=== PATIENT | female | born 1970 | race Caucasian/White ===

== ENCOUNTER 2020-12-03 10:18 | Emergency (ER) | payer OTHER, SELFPAY ==
[2020-12-03] VITALS (28 sets, daily range): BP systolic 112–157; BP diastolic 59–119; PULSE 78; RESP 18; TEMP 35.9; O2SAT 96–100
--- NOTE | ~2020-12-03 | CT_ITS ---
EXAMINATION: CT abdomen pelvis wo con DATE: 12/03/2020 11:42 INDICATION: Abdominal pain TECHNIQUE: Computed tomography (CT) of the abdomen and pelvis was performed without intravenous contr ast. Automated exposure control and iterative reconstruction technique were employed. The dose-length product was 497.32 mGy-cm. COMPARISON: None FINDINGS: Calcified right middle lobe nodule consistent with old granulomatous disease. Heart size is normal. N o pericardial or pleural effusion. Liver, gallbladder, pancreas and bilateral adrenal glands are norm al. There is some scarring at the spleen which likely sequela of prior infarct or trauma. There is a geographic region of decreased density at the superior spleen which could represent edema related to more recent infarct. Kidneys and ureters are normal with no urolithiasis, hydroureteronephrosis or pe rinephric/ureteral stranding. Bladder, anteverted uterus and bilateral adnexa are normal. There is mo derate colonic diverticulosis with a sigmoid predominance. There is no adjacent inflammatory change to suggest diverticulitis. Small bowel and appendix are normal. No free intraperitoneal gas or fluid. No pathologically enlarged abdominal or pelvic lymphadenopathy. Small fat-containing umbilical herni a. Mild lumbosacral spondylosis. IMPRESSION: 1. Geographic region of subtly decreased attenuation at the cephalad aspect of the spleen which raise s suspicion for splenic infarct with contour abnormality along the more inferior spleen suggesting sc arring related to chronic infarcts. Specificity is however limited in the absence of intravenous cont rast. Reviewed, dictated and finalized at location A. IMPRESSION: 1. Geographic region of subtly decreased attenuation at the cephalad aspect of the spleen which raises suspicion for splenic infarct with contour abnormality along the more inferior spleen suggesting scarring related to chronic infarcts. Specificity is however limited in the absence of intravenous contrast.
[2020-12-03 11:16] LABS: Basophils Absolute Auto 0.1 K/mm3 (0.0-0.1); Basophils Percent Auto 0.7 % (0.2-1.2); Eosinophils Absolute Auto 0.2 K/mm3 (0-0.3); Hematocrit 45.3 % (37.0-47.0); Immature Granulocyte Absolute 0.08 K/mm3 (0.00-0.031); Immature Granulocyte Percent A 0.5 % (0-0.5); Lymphocytes Absolute Auto 3.36 K/mm3 (0.9-3.2); Lymphocytes Percent Auto 20.3 % (18.3-44.2); Mean Corpuscular HGB Conc 35.3 g/dl (32-36); Mean Corpuscular Hemoglobin 30.4 pg (26-34); Mean Platelet Volume 9.3 fl (7.4-10.4); Monocytes Absolute Auto 0.7 K/mm3 (0.1-0.6); Monocytes Percent Auto 3.9 % (2.6-8.5); Neutrophils Absolute Auto 12.2 K/mm3 (1.3-6.7); Neutrophils Percent Auto 73.6 % (45.5-73.1); Platelet Count Result 496 k/mm3 (150-375); Red Blood Count 5.27 M/mm3 (4.2-5.4); Red Cell Distribution Width 12.5 % (11.5-14.5); White Blood Count 16.5 K/mm3 (4.5-10.0)
[2020-12-03 11:20] LABS: Add Urine Microscopic? YES; Appearance Urine Cloudy (Clear); Bilirubin Urine Negative (Negative); Blood Urine 1+ (Negative); Color Urine Yellow (Yellow); Glucose Urine UA Negative (Negative); Ketones Urine Trace mg/dL (Negative); Leukocyte Esterase Ur Negative LEU/UL (Negative); Nitrate Urine Negative (Negative); Protein Urine 1+ mg/dL (Negative); Specific Grav Ur 1.017 (1.001-1.035); Squamous Epithelial Cell Urine Few /hpf (Few); Urobilinogen Urine Negative mg/dL (<2.0); WBC Urine 0-3 /hpf
[2020-12-03 11:29] LABS: Alanine Aminotransferase 31 U/L (4-35); Albumin Level 4.5 g/dL (3.5-5.1); Alkaline Phosphatase 116 U/L (38-126); Anion Gap 8 mmol/L (8-16); Aspartate Amino Transferase 29 U/L (14-36); Bilirubin,Total 0.4 mg/dL (0.2-1.3); Blood Urea Nitrogen 9 mg/dL (7-17); Calcium 9.7 mg/dL (8.4-10.2); Carbon Dioxide 26 mmol/L (22-30); Chloride 108 mmol/L (98-107); Estimated CRCL calculation 83 ml/min; Estimated Glomerular Filt Rate > 60; Glucose 129 mg/dL (65-105); Lipase 58 U/L (23-300); Potassium 3.5 mmol/L (3.4-5.0); Sodium 142 mmol/L (137-145)
--- NOTE | 2020-12-03 11:32 | ED.ABDPAIN ---
HPI - Abdominal Pain General Chief Complaint: Abdominal Pain Stated Complaint: side pain, ABD pain, already been to ER Time Seen by Provider: 12/03/20 10:36 Source: patient Mode of arrival: ambulatory Limitations: no limitations History of Present Illness HPI narrative: Patient is 50 years old white female presents with left abdominal pain radiating to left flank area, sharp started 7 days ago. Patient was seen at [facility] [place] and was discharged at that time, 1 day later went to back for the same symptoms and was hospitalized on Monday, Monday and got discharge Monday. Patient underwent CAT scan of the abdomen and pelvis without contrast, gallbladder ultrasound, [facility] Dulcolax and [place]. Patient came today because the pain is still there, associated with nausea and frequent vomiting. Patient denies any fever, chills, chest pain, back pain. Patient denies exposure to anybody known to have COVID-19. Patient denies history of COVID-19 infection. Patient dropped off to the ED by her cousin. Patient smokes and uses marijuana. Does not drink patient denies any history of abdominal surgery.. Related Data Allergies Allergy/AdvReac Type Severity Reaction Status Date / Time iodine Allergy Swelling Verified 12/03/20 10:29 Review of Systems Review of Systems: Narrative: CONSTITUTIONAL: Denies fever, chills, or sweats. EYES: Denies visual changes, redness, or discharge. ENT: Denies rhinorrhea, congestion, sore throat, or otalgia. CARDIOVASCULAR: Denies chest pain, palpitations, or edema. RESPIRATORY: Denies cough or dyspnea. GASTROINTESTINAL: Denies abdominal pain, nausea, vomiting, or diarrhea. GENITOURINARY: Denies dysuria or hematuria. SKIN: Denies rash or itching. MUSCULOSKELETAL: Denies back pain, joint pain, or myalgia. NEUROLOGIC: Denies headache, numbness, or weakness. PSYCHIATRIC: Denies anxiety or depression. PMFSH Social History Social History Gender identity (if verbalized by the patient): Female Exam Narrative: Exam Narrative: General appearance: Well-developed, well-nourished, anxious, no significant other at the bedside Skin: Normal color Head: Normocephalic, nontraumatic Eyes: Clear conjunctiva ENT: Oropharynx normal, ears normal, nose normal Neck: Supple, nontender Chest and respiratory: Airway patent, no respiratory distress, no accessory muscle use Heart: Regular rate/rhythm Abdomen: Soft, diffuse tenderness left abdomen and left flank, no bruises, no rash, no organomegaly, quiet bowel sounds Vascular: Normal peripheral pulses, normal capillary refill. Musculoskeletal: Normal range of motion, nontender back Neurologic: Alert and oriented ?3, DOWELER is normal as tested, no gross motor deficit Course Course Emergency Course: Stable Reevaluation(s) Reevaluation #1: Dr. VEGA Date: 12/03/20 Time: 16:56 Reevaluation #2: Dr. Camacho/hospitalist at [facility] Preferred that patient can follow-up as outpatient with oncology and/or inside sales lead and next declined to accept patient transfer. Date: 12/03/20 Time: 16:58 Reevaluation #3: Describes her leg patient is able to keep fluid and crackers down and willing to go home to follow-up with [facility] as outpatient. Date: 12/03/20 Time: 16:59 Consultations Consultation #1: ALESSIO GANT/oncologist at [facility] Patient can follow-up with us as outpatient, patient need to call the following #[phone]. For appointment Date: 12/03/20 Time: 17:07 Vital Signs Vital signs: Vital Signs Temperature 35.9 C L 12/03/20 10:21 Pulse Rate 78 12/03/20 10:21 Respiratory Rate 18
[2020-12-03] MEDS: SODIUM CHLORIDE 0.9% IV 1,000 ML 999 ML IV CONT (12:02)
[2020-12-03] MEDS: MORPHINE SULFATE (*CRX) 4 MG/ML INJ IV PUSH (12:03)
[2020-12-03] MEDS: ONDANSETRON INJ 4 MG/2 ML VIAL IV PUSH (12:03)
--- NOTE | 2020-12-03 13:55 | PC.NURSE ---
Patient updated on plan of care. Patient expressing concern and is tearful, stating she is worried about her diagnosis. Patient comforted by this RN.
--- NOTE | 2020-12-03 14:55 | PC.NURSE ---
Awaiting disposition regarding plan of care. Pt is requesting that IV be moved due to discomfort.
--- NOTE | 2020-12-03 15:51 | PC.NURSE ---
Pt's IV removed after complaining of it hurting. PO challenge with crackers and juice per order Dr. Bangura after speaking with [facility].
== END 2020-12-03 17:20 | disposition home or self-care (01) ==
PROVIDERS: Emergency Medicine; Emergency Provider Emergency Medicine; PCP Physician Assistant
DX: D73.5 Infarction of spleen (principal)
CPT/HCPCS: 36415; 74176; 80053; 81001; 83690; 85025; 96361; 96374; 96375; 99284; J2270; J2405; J7030